=== PATIENT | female | born 1995 | race Hispanic/Latino ===

== ENCOUNTER 2021-09-11 07:38 | Emergency (ER) | payer OTHER, BC ==
[2021-09-11] MEDS ORDERED: Acetaminophen 500 MG TAB ONE (08:19)
[2021-09-11 09:04] LABS: Pregnancy Test - Urine (BHCG) Negative (Negative); Pregu Control Background? CLEAR/WHITE (CLR/WHITE); Pregu Control Bar Appear? YES (CONTROL BAR)
[2021-09-11] MEDS ORDERED: Ketorolac Tromethamine 30 MG/ML VIAL ONE (09:25)
== END 2021-09-11 09:30 | disposition home or self-care (01) ==
LOC: CSHERS 07:38
DX: M79.651 Pain in right thigh (principal); M79.652 Pain in left thigh; V43.52XA Car driver injured in collision with other type car in traffic accident, initial encounter; Y92.410 Unspecified street and highway as the place of occurrence of the external cause
CPT/HCPCS: 81025; 96372; 99284; J1885

== ENCOUNTER 2024-10-04 16:53 | Outpatient (CLI) | payer BC | END 2024-10-04 16:54 | disposition home or self-care (01) | LOC: CSHRAD 16:53 | PROVIDERS: ATTEND Nurse Practitioner Family | DX: S99.912A Unspecified injury of left ankle, initial encounter (principal) ==